=== PATIENT | male | born 1975 | race Hispanic/Latino ===

== ENCOUNTER 2016-12-17 11:11 | Emergency (ER) ==
[2016-12-17 11:18] VITALS: BP 125/88
--- NOTE | 2016-12-17 11:37 | PROVIDER DOCUMENTATION ---
HPI-EENT General - General Chief Complaint: Cold Symptoms Stated Complaint: COLD SX Time Seen by Provider: 12/17/16 11:26 Source: patient Allergies/Adverse Reactions: Patient Allergies Allergy/AdvReac Type Severity Reaction Status Date / Time No Known Allergies Allergy Verified 12/17/16 11:18 Home Medications: Home Medication List Medication Instructions Recorded Confirmed Last Taken Type Azithromycin [Zithromax Z-Mychal] 250 mg PO DIRECTED #1 pkg 12/17/16 Unknown Rx - History of Present Illness-EENT General Nature of Presenting Problem: 41 y/o male, c/o cough x 1 week, sinus and nasal congestion, watery eyes and fatigue/muscle aches. States he began coughing 5 days ago, but yesterday started having the drainage and fatigue, with increased sinus congestion and fatigue. Denies abdominal pain, n/v/d. Denies wheezing or sob. Denies chest pain. Has tried Robitussin and tylenol without relief. Review of Systems - Adult - REVIEW OF SYSTEMS - ADULT Constitutional: reports: see HPI, fever (subjective), fatique. denies: chills Eyes: reports: see HPI, dry eyes, redness. denies: decreased vision, blurred vision, double vision, eye pain Ears, Nose, Mouth & Throat: reports: no symptoms reported, sinus problem, nose pain. denies: ear pain, throat pain Cardiovascular: reports: no symptoms reported. denies: chest pain, palpitations Respiratory: reports: see HPI, cough. denies: shortness of breath, wheezing Gastrointestinal: reports: no symptoms reported. denies: abdominal pain, diarrhea, nausea, vomiting Genitourinary: reports: no symptoms reported. denies: dysuria, discharge, frequency Musculoskeletal: reports: see HPI, muscle aches. denies: bone pain, back pain, joint pain Integumentary: reports: no symptoms reported. denies: rash Neurological: reports: no symptoms reported. denies: headache/migraines Psychiatric: reports: no symptoms reported Endocrine: reports: no symptoms reported Hematologic/Lymphatic: reports: no symptoms reported Allergic/Immunologic: reports: no symptoms reported All Other Systems: Reviewed and Negative Past History - Adult - PAST MEDICAL HISTORY-ADULT Review of Records: reports: Old Records Reviewed, Nursing Assessment Review, Medications Reviewed, Social history reviewed & non-contributory. Major Childhood Illnesses: reports: denies history Cardiovascular: reports: denies history Respiratory: reports: denies history Gastrointestinal: reports: denies history Genitourinary: reports: denies history Musculoskeletal: reports: denies history Neurological: reports: denies history Endocrine/Immune: reports: denies history Other Conditions: reports: denies history - PRIOR SURGERIES/PROCEDURES Surgical/Procedure History: reports: reviewed, not pertinent - IMMUNIZATION STATUS Childhood Immunizations: See Nurse Assessment Flu Vaccine: See Nurse Assessment - FAMILY HISTORY Family History: reviewed, not pertinent - SOCIAL HISTORY Smoking: denies Substance Use: none/never Alcohol Use Frequency: never Physical Exam- EENT - Physical Exam EENT Initial Vital Signs Reviewed: Yes General Appearance: appears well, alert, no apparent distress Eye Exam: bilateral eye: PERRL, EOMI, conjunctival inflammation Ear Exam: bilateral ear: auricle normal, canal normal, TM normal Nasal Exam: normal inspection Throat Exam: normal mouth inspection, pharynx normal Neck: non-tender, full range of motion, supple, normal inspection. negative: lymphadenopathy Respiratory: chest non-tender, lungs clear, normal breath sounds, no pleuratic chest pain, no respiratory distress, no accessory muscle use. negative: respiratory distress, decreased breath sounds, accessory muscle use, crackles, rales, rhonchi, wheezing Cardiovascular: normal peripheral pulses, regular rate, rhythm Extremity: normal range of motion, non-tender, normal gait Integumentary: normal color, normal turgor, warm/dry Neurologic: grossly normal, no motor/sensory deficits Psych/Mental Status: normal mood/affect, normal thought content, normal thought process, oriented x 3 Progress - PLAN OF CARE/RESULTS Progress/Plan/Lab Results: Vital Signs Temp Pulse Resp BP Pulse Ox 12/17/16 11:15 98.2 F 78 16 125/88 99 No Known Allergies Allergy (Verified 12/17/16 11:18) No Home Medications 12/17/16 Laboratory 12/17/16 11:36 Influenza A (Rapid) NEGATIVE Influenza B (Rapid) NEGATIVE Orders Category Date Time Status CHEST-2 VIEWS [RAD] Stat Exams 12/17/16 11:[address] Stat Lab 12/17/16 11:36 Completed Orders Category Date Time Status CHEST-2 VIEWS [RAD] Stat Exams 12/17/16 11:[address] Stat Lab 12/17/16 11:36 Completed Dexamethasone [Decadron] Med 12/17/16 11:59 Once 4 mg IM NOW ONE - XRAY 1 XRAY: Bilateral XRAY Study: Chest Impression: Normal (no pneumonia per radiology) Departure - Departure Time of Disposition Order: 11:59 DIAGNOSIS: Sinusitis, acute frontal Qualifiers: Recurrence: non-recurrent Qualified Code(s): J01.10 - Acute frontal sinusitis, unspecified Disposition: HOME 01 Certified Medical Emergency: Emergent Condition: Stable Additional Instructions: Tylenol and motrin for pain and fever ED Follow Up Instructions: You have been treated by a care provider in the Emergency Department. These instructions are being provided to you so you can have an understanding of how to care for yourself upon discharge. Upon discharge from the Emergency Department, you are responsible for making arrangements for follow-up care by a physician of your choice. Take all prescribed medications as directed. Return to the Emergency Department immediately for any new or worsening symptoms. You may call the Physician Referral phone number at [phone] to obtain a list of Physicians who are taking new patients. Prescriptions: Azithromycin [Zithromax Z-Mychal] 250 mg PO DIRECTED #1 pkg Attestation - Physician/ MILAGRO Attestation Patient care was provided by Advanced Practice Provider:: Yes Advanced Practice Provider:: Opal Murillo Advanced Practice Provider documentation review:: The Mid-level provider documentation, treatment plan and medical decision making was reviewed by the physician who agrees with all treatment and medical decision making by the MLP.
[2016-12-17] MEDS ORDERED: DECADRON IM ONE (11:59)
--- NOTE | 2016-12-17 12:12 | Diag Imaging Result Document ---
PROCEDURE NAME: CHEST-2 VIEWS - 12/17/2016 FRONTAL AND LATERAL CHEST, TWO VIEWS: FINDINGS: Poor inspiratory effort. The heart is not enlarged. The vessels are not distended. There are no infiltrates. No pleural effusions. IMPRESSION: No acute abnormality.
== END 2016-12-17 12:27 | disposition home or self-care (01) ==
LOC: P.ED 11:11
DX: J01.10 Acute frontal sinusitis, unspecified (principal); R05 Cough; R09.81 Nasal congestion; R50.9 Fever, unspecified; R53.83 Other fatigue; J34.89 Other specified disorders of nose and nasal sinuses; M79.1 Myalgia
CPT/HCPCS: 71020; 87804; 96372; J1100